=== PATIENT | male | born 1930 | race Caucasian/White ===

== ENCOUNTER 2017-01-17 20:25 | Inpatient (IN) | payer OTHER ==
[~2017-01-17] VITALS: Ht 180.3 cm; Wt 74.8 kg
[~2017-01-17 20:25] MED LIST: ASPI-1035 PO; ATEN50TA PO; ATOR40TA70 PO; LATA2.5D2 EACHEYE; LISI10TA5 PO; [UNRECOGNIZED DRUG - OTHER] PO
[2017-01-17] MEDS ORDERED: SODIUM CHLORIDE 0.9% 1,000 ML IV ONE (20:44)
[2017-01-17] MEDS ORDERED: LORAZEPAM 2MG/ML CPJ IV ONE (20:45)
[2017-01-17 21:19] LABS: BG BASE EXCESS 4.7 mmol/L (-2.0-2.0); BG CARBOXYHEMOGLOBIN 0.6 % (0.5-1.5); BG DEOXYHEMOGLOBIN 13.5 % (0.0-5.0); BG FRACTION INSPIRED OXYGEN 21; BG HCO3 ACT 32.1 mmol/L (22.0-26.0); BG METHEMOGLOBIN 0.3 % (0.0-1.5); BG OXYGEN SATURATION 86.4 % (92.0-98.5); BG OXYHEMOGLOBIN 85.6 % (94.0-97.0); BG PH 7.332 (7.350-7.450); BG PO2 53.4 mmHg (75.0-100.0); BG SAMPLE SITE RIGHT RADIAL; BG TOTAL HEMOGLOBIN 11.5 g/dL (12.0-18.0); BG VENT MODE ROOM AIR
[2017-01-17 22:13] LABS: AMMONIA 18 uMol/L (<32); INDEX HEMOLYSI 1 (1-3)
[2017-01-17 22:14] LABS: ALBUMIN 3.5 g/dL (3.4-5.0); ANION GAP 12; CALCIUM 8.3 mg/dL (8.5-10.1); CARBON DIOXIDE 32 mEq/L (21-32); CHLORIDE 99 mEq/L (98-107); INDEX HEMOLYSI 1 (1-3); INDEX ICTERIC 1 (1-4); INDEX LIPEMIC 1 (1-3); INR 1.1; LIPASE 309 IU/L (73-393); PROTHROMBIN TIME 11.5 sec; UREA NITROGEN BLOOD 37 mg/dL (7-21)
[2017-01-17 22:15] LABS: ETHANOL BLOOD < 10 mg/dL
[2017-01-17 22:19] LABS: ALANINE AMINOTRANSFERASE 17 IU/L (13-61); CREATINE KINASE 215 IU/L (39-308); NT PRO B-TYPE NATRIURETIC PEP 197 pg/mL (5-125); PHENOBARBITAL < 2.1 ug/mL (15.0-40.0); PHENYTOIN 0.6 ug/mL (10-20); TROPONIN I < 0.02 ng/mL (0.00-0.04); VALPROIC ACID 3.5 ug/mL (50-100); eGFR 29 mL/min (>60)
[2017-01-17 22:24] LABS: THYROID STIMULATING HORMONE 0.18 uIU/mL (0.36-3.74)
[2017-01-17 22:28] LABS: CARBAMAZEPINE < 0.5 ug/mL (4-12)
[2017-01-17 22:30] LABS: BASOPHILS % 0.3 % (0.0-2.0); EOSINOPHILS % 0.9 % (0.0-5.0); HEMATOCRIT. 28.1 % (42.0-52.0); LYMPHOCYTES % 13.7 % (20.0-50.0); MEAN CORPUSCULAR HEMOGLOBIN 28.3 pg (28.0-32.0); MEAN CORPUSCULAR VOLUME 88.3 fL (80.0-94.0); MEAN PLATELET VOLUME 8.1 fl (7.4-10.4); MONOCYTES % 12.4 % (2.0-8.0); NEUTROPHILS % 72.7 % (40.0-76.0); PLATELET 171 x1000/uL (130-400); RED BLOOD CELL COUNT 3.18 mill/uL (4.7-6.1); RED CELL DISTRIBUTION WIDTH 15.2 % (11.6-14.6); WHITE BLOOD COUNT 6.1 x1000/uL (4.5-11.0)
[2017-01-18] VITALS (39 sets, daily range): BP systolic 86–165; BP diastolic 52–111
[2017-01-18] MEDS ORDERED: ASPIRIN 325MG EC TABLET PO ONE
[2017-01-18] MEDS ORDERED: LORAZEPAM 2MG/ML CPJ IV ONE ×3 (01:15→08:15)
[2017-01-18 02:57] LABS: BG BASE EXCESS 4.3 mmol/L (-2.0-2.0); BG CARBOXYHEMOGLOBIN 0.2 % (0.5-1.5); BG DEOXYHEMOGLOBIN 9.8 % (0.0-5.0); BG FRACTION INSPIRED OXYGEN 30; BG HCO3 ACT 31.9 mmol/L (22.0-26.0); BG METHEMOGLOBIN 0.3 % (0.0-1.5); BG OXYGEN SATURATION 90.2 % (92.0-98.5); BG OXYHEMOGLOBIN 89.7 % (94.0-97.0); BG PCO2 66.4 mmHg (35.0-45.0); BG PH 7.299 (7.350-7.450); BG PO2 63.4 mmHg (75.0-100.0); BG SAMPLE SITE RIGHT RADIAL; BG TOTAL HEMOGLOBIN 9.5 g/dL (12.0-18.0); BG VENT MODE MASK - BIPAP; BG VENT RATE 12 set
[2017-01-18] MEDS ORDERED: LORAZEPAM 2MG/ML CPJ ONE (08:08)
[2017-01-18] MEDS ORDERED: SODIUM CHLORIDE 0.9% 1,000 ML IV ONE (08:15)
[2017-01-18] MEDS ORDERED: PROPOFOL 10MG/ML 100ML 100 ML IV SCH (08:15)
[2017-01-18] MEDS ORDERED: AZITHROMYCIN 500 MG in DEXT 5% WATER 250 ML IV SCH (08:45)
[2017-01-18] MEDS ORDERED: CLINDAMYCIN 900 MG in DEXTROSE 5% WATER 50 ML IV ONE (08:45)
[2017-01-18] MEDS ORDERED: CEFTRIAXONE 1 G PREMIX 50 ML IV ONE (08:45)
[2017-01-18 09:37] LABS: BG BASE EXCESS 3.4 mmol/L (-2.0-2.0); BG CARBOXYHEMOGLOBIN 0.3 % (0.5-1.5); BG DEOXYHEMOGLOBIN 1.7 % (0.0-5.0); BG FRACTION INSPIRED OXYGEN 100; BG HCO3 ACT 29.4 mmol/L (22.0-26.0); BG OXYGEN SATURATION 98.3 % (92.0-98.5); BG PCO2 52.3 mmHg (35.0-45.0); BG PH 7.367 (7.350-7.450); BG PO2 150.2 mmHg (75.0-100.0); BG SAMPLE SITE RIGHT BRACHIAL; BG TIDAL VOLUME(mL) 500 mL; BG TOTAL HEMOGLOBIN 9.3 g/dL (12.0-18.0); BG VENT MODE VENT - A/C; BG VENT RATE 14 set
[2017-01-18] MEDS ORDERED: IPRATROPIUM/ALBUTEROL 0.5-3(2.5)MG/3ML NEB HHN SCH (12:00)
[2017-01-18] MEDS: PIPERACILLIN/TAZ 3.375G PREMIX 50 ML IV SCH ×2 (12:03→20:13)
[2017-01-18] MEDS: DEXT 5%/0.45% NACL 1000ML 1,000 ML IV SCH (12:03)
[2017-01-18 14:25] LABS: BG BASE EXCESS 1.1 mmol/L (-2.0-2.0); BG DEOXYHEMOGLOBIN 1.2 % (0.0-5.0); BG FRACTION INSPIRED OXYGEN 90; BG HCO3 ACT 23.2 mmol/L (22.0-26.0); BG METHEMOGLOBIN 0.1 % (0.0-1.5); BG OXYGEN SATURATION 98.8 % (92.0-98.5); BG OXYHEMOGLOBIN 98.7 % (94.0-97.0); BG PCO2 28.3 mmHg (35.0-45.0); BG PH 7.531 (7.350-7.450); BG PO2 255.9 mmHg (75.0-100.0); BG SAMPLE SITE RIGHT BRACHIAL; BG TIDAL VOLUME(mL) 500 mL; BG TOTAL HEMOGLOBIN 10.4 g/dL (12.0-18.0); BG VENT MODE VENT - A/C; BG VENT RATE 18 set
[2017-01-18] MEDS: PROPOFOL 10MG/ML 100ML 100 ML IV PRN ×2 (14:37→21:26)
[2017-01-18] MEDS ORDERED: ACETYLCYSTEINE INH SCH (15:00)
[2017-01-18] MEDS ORDERED: ACETYLCYSTEINE 100MG/ML 10% VIAL 4ML INH SCH (15:12)
[2017-01-18] MEDS: ACETYLCYSTEINE 100MG/ML 10% VIAL 4ML INH SCH (17:06)
[2017-01-18] MEDS: ALBUTEROL (0.083%) 2.5MG/3ML NEB HHN SCH ×3 (17:07→23:41)
[2017-01-18] MEDS ORDERED: MEMA10TA11 PO (20:02)
[2017-01-18] MEDS ORDERED: FINA5TAB3 PO (20:02)
[2017-01-18] MEDS ORDERED: MULT-1146 PO (20:02)
[2017-01-18] MEDS ORDERED: CLOP75TA33 PO (20:02)
[2017-01-18] MEDS ORDERED: QUET25TA PO (20:02)
[2017-01-18] MEDS ORDERED: TAMS-11 PO (20:02)
[2017-01-18] MEDS ORDERED: AMLO10TA4 PO (20:02)
[2017-01-19] VITALS (25 sets, daily range): BP systolic 84–150; BP diastolic 44–89
[2017-01-19] MEDS: PIPERACILLIN/TAZ 3.375G PREMIX 50 ML IV SCH ×3 (03:21→20:06)
[2017-01-19] MEDS: ALBUTEROL (0.083%) 2.5MG/3ML NEB HHN SCH ×5 (03:56→20:25)
[2017-01-19 05:25] LABS: BASOPHILS % 0.1 % (0.0-2.0); EOSINOPHILS % 0.1 % (0.0-5.0); HEMATOCRIT. 27.4 % (42.0-52.0); LYMPHOCYTES % 11.5 % (20.0-50.0); MEAN CORPUSCULAR HEMOGLOBIN 28.6 pg (28.0-32.0); MEAN CORPUSCULAR VOLUME 86.5 fL (80.0-94.0); MEAN PLATELET VOLUME 8.6 fl (7.4-10.4); MONOCYTES % 6.5 % (2.0-8.0); NEUTROPHILS % 81.8 % (40.0-76.0); PLATELET 139 x1000/uL (130-400); RED BLOOD CELL COUNT 3.17 mill/uL (4.7-6.1); RED CELL DISTRIBUTION WIDTH 15.3 % (11.6-14.6); WHITE BLOOD COUNT 8.5 x1000/uL (4.5-11.0)
[2017-01-19 05:37] LABS: MAGNESIUM 1.8 mg/dL (1.8-2.4)
[2017-01-19] MEDS: PROPOFOL 10MG/ML 100ML 100 ML IV PRN ×2 (06:04→17:23)
[2017-01-19 08:59] LABS: BG BASE EXCESS 0.7 mmol/L (-2.0-2.0); BG CARBOXYHEMOGLOBIN 0.3 % (0.5-1.5); BG DEOXYHEMOGLOBIN 1.4 % (0.0-5.0); BG FRACTION INSPIRED OXYGEN 75; BG HCO3 ACT 24.9 mmol/L (22.0-26.0); BG METHEMOGLOBIN 0.2 % (0.0-1.5); BG OXYGEN SATURATION 98.6 % (92.0-98.5); BG OXYHEMOGLOBIN 98.1 % (94.0-97.0); BG PCO2 38.5 mmHg (35.0-45.0); BG PH 7.429 (7.350-7.450); BG PO2 170.1 mmHg (75.0-100.0); BG SAMPLE SITE RIGHT RADIAL; BG TIDAL VOLUME(mL) 500 mL; BG TOTAL HEMOGLOBIN 10.1 g/dL (12.0-18.0); BG VENT MODE VENT - A/C; BG VENT RATE 14 set
[2017-01-19] MEDS ORDERED: MAGNESIUM 1 G PREMIX 100 ML IV SCH (11:30)
[2017-01-19] MEDS ORDERED: CLINDAMYCIN 900 MG PREMIX 50 ML IV SCH (12:00)
[2017-01-19] MEDS ORDERED: CLINDAMYCIN 900 MG in DEXTROSE 5% WATER 50 ML IV SCH (12:00)
[2017-01-19] MEDS: ENOXAPARIN 30MG/0.3ML SYR SUBCUT SCH (13:00)
[2017-01-19] MEDS ORDERED: VANCOMYCIN 1250MG in DEXTROSE 5% WATER 250ML IV SCH (14:00)
[2017-01-19] MEDS: VANCOMYCIN 750 MG PREMIX 150 ML IV SCH (14:00)
[2017-01-19] MEDS: PANTOPRAZOLE SODIUM 40 MG/VIAL IV SCH (15:02)
[2017-01-19] MEDS ORDERED: MORPHINE SULFATE 2 MG/ML CPJ (NOT FOR IM USE) IV PRN (16:30)
[2017-01-19] MEDS: ACETYLCYSTEINE 100MG/ML 10% VIAL 4ML INH SCH (16:50)
[2017-01-19] MEDS: DEXT 5%/0.45% NACL 1000ML 1,000 ML IV SCH (22:55)
[2017-01-20] VITALS (42 sets, daily range): BP systolic 100–154; BP diastolic 51–84
[2017-01-20] MEDS: PROPOFOL 10MG/ML 100ML 100 ML IV PRN ×3 (00:22→14:19)
[2017-01-20] MEDS: ACETYLCYSTEINE 100MG/ML 10% VIAL 4ML INH SCH ×3 (01:08→20:30)
[2017-01-20] MEDS: ALBUTEROL (0.083%) 2.5MG/3ML NEB HHN SCH ×6 (01:08→20:27)
[2017-01-20] MEDS: PIPERACILLIN/TAZ 3.375G PREMIX 50 ML IV SCH ×3 (03:24→20:17)
[2017-01-20 08:20] LABS: BG BASE EXCESS 1.6 mmol/L (-2.0-2.0); BG HCO3 ACT 25.9 mmol/L (22.0-26.0); BG METHEMOGLOBIN 0.3 % (0.0-1.5); BG OXYHEMOGLOBIN 94.7 % (94.0-97.0); BG PCO2 39.8 mmHg (35.0-45.0); BG PH 7.432 (7.350-7.450); BG PO2 78.3 mmHg (75.0-100.0); BG SAMPLE SITE RIGHT BRACHIAL; BG TIDAL VOLUME(mL) 500 mL; BG TOTAL HEMOGLOBIN 8.6 g/dL (12.0-18.0); BG VENT MODE VENT - A/C; BG VENT RATE 14 set
[2017-01-20] MEDS: PANTOPRAZOLE SODIUM 40 MG/VIAL IV SCH (08:23)
[2017-01-20] MEDS: ENOXAPARIN 30MG/0.3ML SYR SUBCUT SCH (12:48)
[2017-01-20] MEDS: VANCOMYCIN 750 MG PREMIX 150 ML IV SCH (15:08)
[2017-01-20] MEDS ORDERED: PROPOFOL 10MG/ML 100ML 100 ML IV PRN (20:00)
[2017-01-20] MEDS: DEXT 5%/0.45% NACL 1000ML 1,000 ML IV SCH (20:17)
[2017-01-20] MEDS ORDERED: BLOOD SUGAR DIAGNOSTIC STRIP TEST SCH (21:00)
[2017-01-20] MEDS ORDERED: INSULIN LISPRO 100 UNITS/ML SUBCUT SCH (21:00)
[2017-01-20] MEDS ORDERED: DEXTROSE 50% WATER 50ML SYRINGE IV PRN (21:00)
== END 2017-01-20 22:51 | disposition short-term general hospital (02) | DRG 871 ==
LOC: ER 20:25 → MICUSO 01-18 08:51
PROVIDERS: ADMIT Internal Medicine; ATTEND Internal Medicine
PROC: 5A1945Z Respiratory Ventilation, 24-96 Consecutive Hours (ICD-10-PCS; principal; 2017-01-18)
PROC: 5A09357 Assistance with Respiratory Ventilation, Less than 24 Consecutive Hours, Continuous Positive Airway Pressure (ICD-10-PCS; 2017-01-18)
PROC: 0BH18EZ Insertion of Endotracheal Airway into Trachea, Via Natural or Artificial Opening Endoscopic (ICD-10-PCS; 2017-01-18)
PROC: 0T7D7ZZ Dilation of Urethra, Via Natural or Artificial Opening (ICD-10-PCS; 2017-01-19)
PROC: 0T9B70Z Drainage of Bladder with Drainage Device, Via Natural or Artificial Opening (ICD-10-PCS; 2017-01-19)
DX: A41.9 Sepsis, unspecified organism (principal); G93.41 Metabolic encephalopathy; I63.9 Cerebral infarction, unspecified; J69.0 Pneumonitis due to inhalation of food and vomit; J96.01 Acute respiratory failure with hypoxia; E11.9 Type 2 diabetes mellitus without complications; F03.90 Unspecified dementia, unspecified severity, without behavioral disturbance, psychotic disturbance, mood disturbance, and anxiety; H40.9 Unspecified glaucoma; I11.9 Hypertensive heart disease without heart failure; N32.0 Bladder-neck obstruction; N35.9 Urethral stricture, unspecified; T17.990A Other foreign object in respiratory tract, part unspecified in causing asphyxiation, initial encounter; N40.1 Benign prostatic hyperplasia with lower urinary tract symptoms; R33.8 Other retention of urine; Z82.49 Family history of ischemic heart disease and other diseases of the circulatory system; Z86.73 Personal history of transient ischemic attack (TIA), and cerebral infarction without residual deficits; Z87.891 Personal history of nicotine dependence; Y93.89 Activity, other specified; Y92.89 Other specified places as the place of occurrence of the external cause; Y99.8 Other external cause status
CPT/HCPCS: 31500; 36415; 36600; 43753; 70450; 71010; 71250; 74176; 80048; 80053; 80156; 80165; 80184; 80185; 82140; 82375; 82550; 82805; 82962; 83605; 83690; 83735; 83880; 84443; 84478; 84484; 85025; 85610; 86850; 86900; 87040; 87070; 93005; 93970; 94002; 94003; 94640; 94660; 96361; 96365; 96375; 96376; 99291; C9113; G0482; J0456; J0696; J1650; J2060; J2270; J2543; J2704; J3370; J3475; J3490; J7030; J7060; J7608; J7611; J7620; A4315